=== PATIENT | female | born 1990 | race African-American/Black ===

== ENCOUNTER 2016-04-02 20:57 | Inpatient (IN) | payer OTHER, SELFPAY ==
[~2016-04-02] VITALS: Ht 165.1 cm; Wt 80.0 kg
[2016-04-02 21:09] VITALS: BP 116/68
[2016-04-02] MEDS ORDERED: PRENTAB9 PO (21:32)
[2016-04-02] MEDS ORDERED: BENA25CA2 PO (21:32)
[2016-04-02] MEDS ORDERED: PENICILLIN G POTASSIUM IV 5 MU in D5W MINI-BAG PLUS 100 ML IV STA (22:20)
[2016-04-02] MEDS ORDERED: OXYTOCIN DRIP 30 UNITS in APPROPRIATE DILUENT 1 EA IV SCH (22:30)
[2016-04-02] MEDS: LR 1,000 ML IV SCH (22:58)
[2016-04-02 23:15] LABS: MEAN CORPUSCULAR HEMOGLOBIN 30.5 pg (27.0-33.0); MEAN CORPUSCULAR HGB CONC 34.8 g/dl (32.0-36.5); MEAN CORPUSCULAR VOLUME 87.7 fl (80.0-96.0); RED CELL DISTRIBUTION WIDTH 12.8 % (11.5-14.5); WHITE BLOOD COUNT 10.5 K/mm3 (4.0-10.0)
[2016-04-02 23:42] VITALS: BP 115/64
[2016-04-03] VITALS (36 sets, daily range): BP systolic 97–154; BP diastolic 52–85
[2016-04-03] MEDS ORDERED: FENTANYL 2MCG/ML ROPIVACAINE 0.2% NACL 250 ML CADD As Ordered ONE (01:17)
[2016-04-03] MEDS ORDERED: LACTATED RINGER'S 1000 ML IV ONE (01:18)
[2016-04-03] MEDS ORDERED: EPIDURAL COMMENT XX SCH (01:44)
[2016-04-03] MEDS: FENTANYL/ROPIVACAINE/NACL CADD 250 ML EPIDURAL SCH ×2 (01:44→14:44)
[2016-04-03] MEDS ORDERED: REFRIGERATOR IV KEYS XX PRN (01:44)
[2016-04-03] MEDS ORDERED: LACTATED RINGER'S 1000 ML IV PRN (01:44)
[2016-04-03] MEDS ORDERED: diphenhydrAMINE INJ 50MG/ML VIAL (J1200) IV PRN (01:44)
[2016-04-03] MEDS ORDERED: ePHEDrine SULFATE 25 MG/5 ML(5MG/ML) SYRINGE IV PRN (01:44)
[2016-04-03] MEDS ORDERED: EPIDURAL/PCA KEYS XX PRN (01:44)
[2016-04-03] MEDS ORDERED: NALOXONE INJ 0.4 MG/1 ML VIAL (J2310) IV PRN (01:44)
[2016-04-03] MEDS ORDERED: ONDANSETRON 4MG/2ML VIAL (J2405) IV PRN (01:44)
[2016-04-03] MEDS: PENICILLIN G POTASSIUM IV 2.5 MU in D5W 100 ML IV SCH ×2 (03:44→07:44)
[2016-04-03] MEDS: LR 1,000 ML IV SCH (06:20)
--- NOTE | 2016-04-03 06:26 | HPE ---
DATE OF ADMISSION: 04/02/2016 HISTORY: 25-year-old 2, para 0, abortio 1, last menstrual period (LMP) 06/27/2015, estimated date of confinement (EDC) 04/02/2016 at 40 weeks of gestation with spontaneous rupture of membranes and clear liquid, fern positive, Nitrazine positive. Risk factors is she had urinary tract infection (UTI) with group B Streptococcus (GBS). She has depression and spontaneous rupture of membranes at 40 weeks of gestation. LABS: Labs are B+, HIV negative, hepatitis negative, early 1-hour glucose 86, 1-hour glucose at 28 weeks 103, RPR negative, rubella immune. Varicella nonimmune. Vaginal GBS is negative. Pap is normal. Urine is GBS positive. Gonorrhea and chlamydia (G and C) is negative. EXAMINATION: On examination no distress. Category 1 strip good accelerations, contractions are noted. Nitrazine positive, fern positive. Cervix posterior 2 cm 60% effaced -2 station. VITAL SIGNS : Blood pressure is 116/68, respirations 86, pulse 18, temperature 97.8. The rest of the examination unremarkable. She is mentioned as a category 1 strip. HEENT/NECK: Normocephalic, atraumatic. Full range of motion. Pupils equal and reactive to light. EXTREMITIES: Distal pulses symmetric. No evidence of deep venous thrombosis (DVT), pulmonary embolus (PE) or superficial phlebitis. LUNGS: No wheezes or rhonchi. CHEST: Chest is clear bilaterally to bases. ABDOMEN: Uterus is nontender. Symphysis fundus height is appropriate. Four quadrant bowel sounds are noted. She has no rashes or lesions or pruritus. No arthralgia or myalgia. No complaints of cough, wheezes, shortness of breath or dyspnea on exertion. No chest pain. She is not bleeding. She is neurologically complete. No frequency, urgency, no incontinence. No nausea, vomiting, diarrhea, constipation. No diabetic issues. PAST SURGICAL HISTORY: Unremarkable. PAST MEDICAL HISTORY: Unremarkable. SOCIAL HISTORY: She does not smoke or drink, does not abuse drugs. She is and she is a soldier. SUMMARY: In summary we have a term gestation with spontaneous rupture of membranes. Category 1 strip. Our plan of management is group B Streptococcus (GBS) prophylaxis, epidural as requested. Augmentation with Pitocin as necessary. We spent 40 minutes in discussion of our plan of management, both expressed understanding of the risks and benefits of augmentation of labor. GBS positive requiring antibiotic therapy.
[2016-04-03] MEDS ORDERED: OXYTOCIN DRIP 30 UNITS in APPROPRIATE DILUENT 1 EA IV SCH (12:47)
[2016-04-03] MEDS ORDERED: MEASLES,MUMPS,RUBELLA VACCINE INJ (MMR-II) (90707) SC SCH (13:00)
[2016-04-03] MEDS ORDERED: DIBUCAINE 1% OINTMENT 30GM TOP PRN (13:00)
[2016-04-03] MEDS ORDERED: RHOGAM 300 MCG (1500 IU) INJ (J2790) IM SCH (13:00)
[2016-04-03] MEDS ORDERED: ACETAMINOPHEN 500 MG TAB PO PRN (13:00)
[2016-04-03] MEDS ORDERED: DOCUSATE SODIUM 100 MG CAP PO PRN (13:00)
[2016-04-03] MEDS ORDERED: miSOPROStol 200 MCG TAB (S0191) PR ONE (13:00)
--- NOTE | 2016-04-03 13:10 | DNPDOC ---
Delivery Note Delivery Note DATE OF DELIVERY: Apr 03, 2016 at 1033 PREDELIVERY DIAGNOSIS: 40w0d gestation and labor. POST DELIVERY DIAGNOSIS: Delivered. PROCEDURE: Spontaneous vaginal delivery INSPECTOR SUBASSEMBLIES: Dr. Meg Painting MD ANESTHESIA: epidural ESTIMATED BLOOD LOSS: 400 mL. FINDINGS: 7 pound 1 ounce female infant, Score 9/10, no nuchal cord DELIVERY SUMMARY: Luther is a 25yo G2 now P1011 who was admitted to L&D for premature rupture of membranes. She had an uncomplicated of a viable female at 1033 on [id number] at 40w0d. Patient had extremely tight perineum and though FHRT remained reassuring, it was obvious that she would need an episiotomy for the head to deliver, so small 1.5cm right medio-lateral episiotomy performed. Head then easily delivered OA, restituted JOHN. No nuchal cord. Right anterior shoulder delivered followed by posterior shoulder and corpus. Cord clamped x2 and cut by FOB. mouth/nares bulb suctioned. Spontaneous cry noted. Baby placed on mother's abdomen. Apgars 9/10, weight 3190g (7#1oz). No indication to obtain cord blood. With gentle downward guidance and suprapubic pressure, placenta delivered spontaneously and intact. Trailing membranes teased out with ring forceps. Uterine sweep performed for suspicion of retained membrane which was confirmed and all membranes removed with four sweeps. Fundal massage until both uterine fundus and lower uterine segment firm; fundus at U-2cm. Pitocin 30mu IV bolus administered. Inspection of perineum and vaginal wall revealed no extension of mediolateral episiotomy outside the vagina, but she had a laceration within the vagina up both sides of the hymenal ring along with bilateral labial lacerations that were all closed with 3.0/4.0 vicryl suture with good hemostasis. 1000mcg cytotec placed rectally. Mom and in stable condition. MEG PAINTING MD Apr 03, 2016 13:10
[2016-04-03] MEDS: IBUPROFEN 800 MG TAB PO PRN (14:24)
[2016-04-04] MEDS: IBUPROFEN 800 MG TAB PO PRN ×2 (03:49→15:12)
[2016-04-04 05:07] VITALS: BP 103/58
[2016-04-04] MEDS: PRENATAL VITAMIN TAB PO SCH (08:41)
--- NOTE | 2016-04-04 11:05 | IPNPDOC ---
Text Note Date of Service The patient was seen on 04/04/16 at 10:59. NOTE Luther is a 25yo [id number] doing well on PPD 1 s/p uncomplicated on 04/03 at 1033 at 40w0d gestation after presenting for PROM. Had small right mediolateral episiotomy to facilitate delivery of head. Pain is tolerable. Lochia is minimal, with no difficulty. Tolerating regular diet, ambulating without difficulty, voiding spontaneously. Denies f/c/n /v/CP/SOB. Vitals wnl, one documented temp of 100.4F at 1700 last night but afebrile since General: WDWN, resting comfortably Cardiac: S1S2 present, no murmur Lungs: CTAB Abdomen: soft, NTND, fundus firm at u-2cm Extremities: no pain with palpation of calves Assessment: Luther is a 25yo [id number] doing well on PPD 1 s/p uncomplicated on 04/03 at 1033 at 40w0d gestation after presenting for PROM. Hemodynamically stable with no e/o infection. Isolated one-time temp of 100.4F that was not reaffirmed on further temperatures and no symptoms. Plan: -routine post- care -encourage and ambulation -regular diet -tylenol and motrin for pain as well as dibucaine for right mediolateral episiotomy -desires Mirena IUD for PP contraception -likely d/c to home tomorrow Dr. Meg Painting MD [facility] COOK, I+O VSAlyse, I+O Vital Signs Date Time Temp Pulse Resp B/P Pulse Ox O2 Delivery O2 Flow Rate FiO2 04/04/16 05:07 98.2 80 16 103/58 04/03/16 04:52 98 I&O- Last 24 Hours up to 6 AM 04/04/16 06:00 Output Total 900 ml Balance -900 ml MEG PAINTING MD Apr 04, 2016 11:04
[2016-04-04 18:05] VITALS: BP 126/76
[2016-04-05 06:10] VITALS: BP 116/65
[2016-04-05] MEDS ORDERED: IBUP-1114 PO (08:31)
[2016-04-05] MEDS ORDERED: ACET50TA PO (08:31)
[2016-04-05] MEDS ORDERED: COLA100C PO (08:31)
[2016-04-05] MEDS: IBUPROFEN 800 MG TAB PO PRN (09:09)
[2016-04-05] MEDS: PRENATAL VITAMIN TAB PO SCH (09:09)
== END 2016-04-05 10:05 | disposition home or self-care (01) | DRG 775 ==
LOC: M LDO 20:57 → M LDI 21:27 → M OBS 04-03 14:39
PROVIDERS: ADMIT Obstetrics & Gynecology; ATTEND Obstetrics & Gynecology
PROC: 0WBN4ZZ Excision of Female Perineum, Percutaneous Endoscopic Approach (ICD-10-PCS; principal; 2016-04-03)
PROC: 0HQ9XZZ Repair Perineum Skin, External Approach (ICD-10-PCS; 2016-04-03)
DX: O48.0 Post-term pregnancy (principal); Z37.0 Single live birth; Z3A.40 40 weeks gestation of pregnancy; O99.820 Streptococcus B carrier state complicating pregnancy; O70.0 First degree perineal laceration during delivery; O42.02 Full-term premature rupture of membranes, onset of labor within 24 hours of rupture

== ENCOUNTER 2016-11-18 18:27 | Emergency (ER) | payer OTHER ==
[~2016-11-18] VITALS: Ht 165.1 cm; Wt 63.6 kg
[~2016-11-18 18:27] MED LIST: ACET50TA PO; BENA25CA2 PO; COLA100C5 PO; IBUP-1114 PO; PRENTAB9 PO
[2016-11-18] MEDS ORDERED: MORPHINE 2 MG/ML 1ML SYRINGE IV PRN (20:45)
[2016-11-18 21:27] LABS: METHADONE URINE NEGATIVE (NEGATIVE)
[2016-11-18 21:40] VITALS: BP 125/71
--- NOTE | 2016-11-18 21:40 | REPUSA ---
CT of the cervical spine Clinical history: Pain. Technique: Multiple axial CT images were obtained through the cervical spine without administration o f contrast. Coronal and sagittal 3-D reconstructed images were also obtained. Comparison: None. Findings: The cervical vertebral bodies are in satisfactory positioning and alignment. No fractures or dislocat ions are demonstrated. The odontoid process is intact. Intervertebral disc spaces are well-maintained . There is no evidence of facet subluxation. The neural foramen appear grossly patent. The cervical c ranial junction is intact. The cervical spinal canal demonstrates normal caliber and contour without evidence of spinal stenosis. The surrounding soft tissues are within normal limits. Impression: Unremarkable CT examination of the cervical spine.
--- NOTE | 2016-11-18 21:40 | REPUSA ---
CT of the thoracic spine without contrast Clinical history: Pain. Technique: Multiple axial CT images were obtained through the thoracic spine without administration o f contrast. Coronal and sagittal 3-D reconstructed images were also obtained. Findings: The vertebral bodies are in satisfactory positioning and alignment. No fractures or dislocations are demonstrated. Intervertebral disc spaces are well-maintained. There is no evidence of facet subluxati on. The neural foramen appear grossly patent. The spinal canal demonstrates normal caliber and contou r without evidence of spinal stenosis. The surrounding soft tissues are within normal limits. Impression: No acute traumatic injury.
[2016-11-18 21:50] LABS: BASO # 0.1 K/mm3 (0.0-0.2); BASO % 1.2 % (0.0-1.0); EOS # 0.2 K/mm3 (0.0-0.50); EOS % 3.4 % (0.0-3.0); LARGE UNSTAINED CELL # 0.2 K/mm3 (0.0-0.4); LARGE UNSTAINED CELL % 2.7 % (0.0-4.0); LYMPH # 2.8 K/mm3 (1.5-6.5); LYMPH % 42.4 % (24.0-44.0); MEAN CORPUSCULAR HEMOGLOBIN 30.1 pg (27.0-33.0); MEAN CORPUSCULAR HGB CONC 33.5 g/dl (32.0-36.5); MEAN CORPUSCULAR VOLUME 89.8 fl (80.0-96.0); MONO # 0.3 K/mm3 (0.0-0.8); MONO % 4.2 % (0.0-5.0); NEUTROPHILS # 2.9 K/mm3 (1.8-7.7); PLATELET COUNT, AUTOMATED 214 k/mm3 (150-450); RED CELL DISTRIBUTION WIDTH 12.1 % (11.5-14.5); WHITE BLOOD COUNT 6.3 K/mm3 (4.0-10.0)
[2016-11-18 22:10] LABS: ALBUMIN 4.1 GM/DL (3.2-5.2); ALBUMIN/GLOBULIN RATIO 1.17 (1.00-1.93); ALKALINE PHOSPHATASE 86 U/L (45-117); ALT/SGPT 25 U/L (12-78); AMYLASE 52 U/L (25-115); ANION GAP 10 MEQ/L (8-16); AST/SGOT 20 U/L (15-37); BILIRUBIN,DIRECT 0.1 MG/DL (0.0-0.2); BILIRUBIN,TOTAL 0.4 MG/DL (0.2-1.0); BLOOD UREA NITROGEN 17 MG/DL (7-18); CARBON DIOXIDE LEVEL 24 MEQ/L (21-32); CHLORIDE LEVEL 109 MEQ/L (98-107); CREATININE FOR GFR 1.11 MG/DL (0.55-1.02); GLOMERULAR FILTRATION RATE > 60.0 (>60); GLUCOSE, FASTING 84 MG/DL (70-105); SODIUM LEVEL 143 MEQ/L (136-145); TOTAL PROTEIN 7.6 GM/DL (6.4-8.2)
[2016-11-18] MEDS ORDERED: NORCOTAB PO (22:19)
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
== END 2016-11-18 22:35 | disposition home or self-care (01) ==
LOC: M ED 18:27
DX: Z04.1 Encounter for examination and observation following transport accident (principal); S73.101A Unspecified sprain of right hip, initial encounter; S13.4XXA Sprain of ligaments of cervical spine, initial encounter; V43.52XA Car driver injured in collision with other type car in traffic accident, initial encounter; Y92.410 Unspecified street and highway as the place of occurrence of the external cause; Y93.89 Activity, other specified; Y99.8 Other external cause status; F17.210 Nicotine dependence, cigarettes, uncomplicated; F33.9 Major depressive disorder, recurrent, unspecified
CPT/HCPCS: 72125; 72128; 73502; 80048; 80076; 80307; 81001; 81025; 82150; 83605; 83690; 85025; 96374; 99284; G0480